=== PATIENT | male | born 1965 | race Caucasian/White ===

== ENCOUNTER 2016-09-19 13:28 | Inpatient (IN) | payer MEDICARE, MEDICAID ==
[~2016-09-19] VITALS: Ht 182.9 cm; Wt 123.4 kg
[2016-09-19 13:28] VITALS: BP_SYST 147
[~2016-09-19 13:28] MED LIST: AMI200 PO; RIVA20TA PO
[2016-09-19] MEDS ORDERED: NACL 0.9% 1,000 ML IV ONE (14:00)
[2016-09-19] MEDS ORDERED: HYDROmorphone 2 MG/ML VIAL IVP ONE ×2 (14:00→16:00)
[2016-09-19 14:50] LABS: BASOPHILS % (AUTO) 0.4 % (0.0-2.0); EOSINOPHILS # (AUTO) 0.2 K/uL (0.0-0.4); HEMATOCRIT 39.8 % (36-54); HEMOGLOBIN 12.5 g/dL (14.0-18.0); LYMPHOCYTES # (AUTO) 1.8 K/uL (1.0-5.5); LYMPHOCYTES % (AUTO) 19.2 % (20.5-51.5); MEAN CORPUSCULAR HEMOGLOBIN 22 pg (27-31); MEAN CORPUSCULAR HGB CONC 32 % (32-36); MEAN CORPUSCULAR VOLUME 71 fL (79.0-98.0); MONOCYTES # (AUTO) 0.6 K/uL (0.0-1.0); NEUTROPHILS # (AUTO) 6.6 K/uL (1.8-7.7); NEUTROPHILS % (AUTO) 71.4 % (40.0-70.0); PLATELET COUNT (AUTO) 306 K/uL (130-430); RED BLOOD CELL COUNT(AUTO) 5.58 MIL/uL (4.2-6.2); RED CELL DISTRIBUTION WIDTH 17.2 % (9.0-15.0); WHITE BLOOD COUNT (AUTO) 9.2 K/uL (4.8-10.8)
[2016-09-19 14:56] LABS: PROTHROMBIN TIME 10.7 SECS (9.5-12.5)
[2016-09-19 14:58] LABS: ANION GAP 7 (5-15); CALCIUM 8.4 mg/dL (8.4-11.0); CHLORIDE 104 mmol/L (98-107); CREATININE 0.99 mg/dL (0.55-1.30); GLUCOSE 103 mg/dL (70-99); POTASSIUM 3.9 mmol/L (3.5-5.1); SODIUM SERUM 141 mmol/L (136-145); UREA NITROGEN, BLOOD 19 mg/dL (8-21)
[2016-09-19 15:01] LABS: GFR AFRICAN AMERICAN 102 mL/min (>90)
[2016-09-19 15:07] LABS: ALANINE AMINOTRANSFERASE 25 U/L (12-78); ALBUMIN 3.2 g/dL (3.4-4.8); ASPARTATE AMINOTRANSFERASE 14 U/L (10-37); CREATINE KINASE, TOTAL 69 U/L (39-308); TOTAL BILIRUBIN 0.2 mg/dL (0.0-1.0)
[2016-09-19 15:32] LABS: BILIRUBIN,URINE NEGATIVE (NEGATIVE); BLOOD, URINE NEGATIVE (NEGATIVE); CLARITY/URINE CLEAR (CLEAR); COLOR,URINE YELLOW (YELLOW); GLUCOSE,URINE NEGATIVE (NEGATIVE); KETONES,URINE NEGATIVE (NEGATIVE); LEUKOCYTE ESTERASE ,URINE NEGATIVE (NEGATIVE); NITRITE, URINE NEGATIVE (NEGATIVE); PROTEIN URINE TRACE (NEGATIVE); UROBILINOGEN,URINE 0.2 (0.2-1.0)
[2016-09-19 15:54] LABS: BACTERIA,URINE FEW /HPF (None Seen); MUCUS,URINE 3+ /LPF (None Seen); RBC,URINE NONE SEEN /HPF (0-3); WBC,URINE 0-3 /HPF (0-3)
[2016-09-19] MEDS ORDERED: HYDR-1189 PO (16:32)
[2016-09-19] MEDS ORDERED: [UNRECOGNIZED DRUG - CODE] PO (16:32)
[2016-09-19] MEDS ORDERED: GABAPENTIN (16:32)
[2016-09-19] MEDS ORDERED: TAMS-11 PO (16:32)
[2016-09-19 17:22] LABS: BARBITURATE, URINE NEGATIVE (NEG <=200); BENZODIAZEPINE, URINE NEGATIVE (NEG <=150); CANNABINOID, URINE NEGATIVE (NEG <=50); COCAINE, URINE NEGATIVE (NEG <=150); METHAMPHETAMINES SCREEN,URINE POSITIVE (NEG <=500); PHENCYCLIDINE SCREEN,URINE NEGATIVE (NEG <=25); URINE AMPHETAMINE POSITIVE (NEG <=500); URINE METHADONE NEGATIVE (NEG <=200)
[2016-09-19 17:23] LABS: OPIATE, URINE POSITIVE (NEG <=100); UR TRICYCLIC ANTIDEPRESSANTS NEGATIVE (NEG <=300); URINE OXYCODONE SCREEN NEGATIVE (NEG <=100); URINE PROPOXYPHENE SCREEN NEGATIVE (NEG <=300)
[2016-09-19 19:09] VITALS: BP_SYST 141
[2016-09-19 19:34] VITALS: BP_SYST 141
[2016-09-19 20:00] VITALS: BP_SYST 142
[2016-09-19] MEDS ORDERED: HYDROcodone/ACETAMIN 5-325 MG TAB (NORCO/ VICODIN) PO SCH (20:00)
[2016-09-19] MEDS ORDERED: HYDROmorphone 1 MG INJ. 1 MG/ML AMPUL IM PRN (20:00)
[2016-09-19] MEDS ORDERED: CARISOPRODOL 350 MG TABLET PO PRN (20:15)
[2016-09-19] MEDS ORDERED: TEMAZEPAM 15 MG CAPSULE PO PRN (20:15)
[2016-09-19] MEDS ORDERED: ACETAMINOPHEN 325 MG TABLET PO PRN (20:15)
[2016-09-19] MEDS: DOCUSATE SODIUM 250 MG CAPSULE PO SCH (20:25)
[2016-09-19] MEDS ORDERED: AMIODARONE HCL 200 MG TABLET PO SCH (21:00)
[2016-09-19] MEDS: DIPHENHYDRAMINE INJ 50 MG/ML VIAL IVP PRN (23:09)
[2016-09-19] MEDS: HYDROmorphone 1 MG INJ. 1 MG/ML AMPUL IVP PRN (23:09)
[2016-09-20 00:02] VITALS: BP_SYST 143
[2016-09-20 04:00] VITALS: BP_SYST 143
[2016-09-20] MEDS: HYDROmorphone 1 MG INJ. 1 MG/ML AMPUL IVP PRN ×3 (04:32→20:06)
[2016-09-20 06:43] LABS: BASOPHILS % (AUTO) 0.4 % (0.0-2.0); EOSINOPHILS # (AUTO) 0.2 K/uL (0.0-0.4); EOSINOPHILS % (AUTO) 2.3 % (0.0-4.0); HEMATOCRIT 38.9 % (36-54); LYMPHOCYTES # (AUTO) 1.9 K/uL (1.0-5.5); LYMPHOCYTES % (AUTO) 21.5 % (20.5-51.5); MEAN CORPUSCULAR HEMOGLOBIN 22 pg (27-31); MEAN CORPUSCULAR HGB CONC 31 % (32-36); MEAN CORPUSCULAR VOLUME 72 fL (79.0-98.0); MONOCYTES # (AUTO) 0.5 K/uL (0.0-1.0); MONOCYTES % (AUTO) 6.1 % (1.7-9.3); NEUTROPHILS # (AUTO) 6.3 K/uL (1.8-7.7); NEUTROPHILS % (AUTO) 69.7 % (40.0-70.0); PLATELET COUNT (AUTO) 284 K/uL (130-430); RED BLOOD CELL COUNT(AUTO) 5.41 MIL/uL (4.2-6.2); WHITE BLOOD COUNT (AUTO) 8.9 K/uL (4.8-10.8)
[2016-09-20 07:39] LABS: ALBUMIN 2.9 g/dL (3.4-4.8); CALCIUM 8.1 mg/dL (8.4-11.0); CREATININE 0.71 mg/dL (0.55-1.30); POTASSIUM 3.7 mmol/L (3.5-5.1); THYROID STIMULATING HORMONE 4.69 uIu/mL (0.34-4.82); TOTAL BILIRUBIN 0.1 mg/dL (0.0-1.0); TOTAL PROTEIN, SERUM 6.4 g/dL (6.4-8.3)
[2016-09-20] MEDS: DOCUSATE SODIUM 250 MG CAPSULE PO SCH ×2 (08:58→20:06)
[2016-09-20] MEDS: TAMSULOSIN HCL 0.4 MG CAP PO SCH (08:58)
[2016-09-20] MEDS: HYDROcodone/ACETAMIN 5-325 MG TAB (NORCO/ VICODIN) PO PRN (08:59)
[2016-09-20] MEDS: KETOROLAC TROMETHAMINE 15 MG VIAL IVP PRN (09:00)
[2016-09-20 12:09] VITALS: BP_SYST 147
[2016-09-20 16:04] VITALS: BP_SYST 144
[2016-09-20 20:00] VITALS: BP_SYST 148
[2016-09-21] MEDS: HYDROmorphone 1 MG INJ. 1 MG/ML AMPUL IVP PRN ×5 (00:47→20:42)
[2016-09-21 00:50] VITALS: BP_SYST 146
[2016-09-21 05:54] VITALS: BP_SYST 150
[2016-09-21 08:05] VITALS: BP_SYST 100
[2016-09-21] MEDS: TAMSULOSIN HCL 0.4 MG CAP PO SCH (08:25)
[2016-09-21] MEDS: DOCUSATE SODIUM 250 MG CAPSULE PO SCH ×2 (08:25→20:40)
[2016-09-21] MEDS: HYDROcodone/ACETAMIN 5-325 MG TAB (NORCO/ VICODIN) PO PRN ×3 (08:26→16:43)
[2016-09-21 12:00] VITALS: BP_SYST 135
[2016-09-21] MEDS: ONDANSETRON HCL 4 MG/2 ML VIAL IVP PRN ×2 (13:41→16:43)
[2016-09-21 14:02] LABS: BASOPHILS % (AUTO) 0.3 % (0.0-2.0); EOSINOPHILS # (AUTO) 0.1 K/uL (0.0-0.4); EOSINOPHILS % (AUTO) 1.6 % (0.0-4.0); HEMOGLOBIN 12.1 g/dL (14.0-18.0); LYMPHOCYTES # (AUTO) 1.6 K/uL (1.0-5.5); LYMPHOCYTES % (AUTO) 21.3 % (20.5-51.5); MEAN CORPUSCULAR HEMOGLOBIN 23 pg (27-31); MEAN CORPUSCULAR HGB CONC 32 % (32-36); MEAN CORPUSCULAR VOLUME 71 fL (79.0-98.0); MONOCYTES # (AUTO) 0.5 K/uL (0.0-1.0); MONOCYTES % (AUTO) 6.1 % (1.7-9.3); NEUTROPHILS # (AUTO) 5.2 K/uL (1.8-7.7); NEUTROPHILS % (AUTO) 70.7 % (40.0-70.0); PLATELET COUNT (AUTO) 269 K/uL (130-430); RED BLOOD CELL COUNT(AUTO) 5.33 MIL/uL (4.2-6.2); RED CELL DISTRIBUTION WIDTH 16.5 % (9.0-15.0); WHITE BLOOD COUNT (AUTO) 7.4 K/uL (4.8-10.8)
[2016-09-21 16:20] VITALS: BP_SYST 137
[2016-09-21] MEDS: DIPHENHYDRAMINE INJ 50 MG/ML VIAL IVP PRN (19:05)
[2016-09-21 20:00] VITALS: BP_SYST 130
[2016-09-21] MEDS: ANUSOL 1 EA SUPP.RECT (PREPARATION H) RC SCH (20:41)
[2016-09-22] MEDS ORDERED: MAG-AL HYDROX/SIMETH 30 ML UDC PO PRN (00:15)
[2016-09-22 00:16] VITALS: BP_SYST 123
[2016-09-22] MEDS: HYDROmorphone 1 MG INJ. 1 MG/ML AMPUL IVP PRN ×6 (00:39→21:52)
[2016-09-22 04:38] VITALS: BP_SYST 119
[2016-09-22 06:33] LABS: BASOPHILS % (AUTO) 0.3 % (0.0-2.0); EOSINOPHILS # (AUTO) 0.1 K/uL (0.0-0.4); EOSINOPHILS % (AUTO) 1.7 % (0.0-4.0); HEMATOCRIT 38.8 % (36-54); HEMOGLOBIN 12.1 g/dL (14.0-18.0); LYMPHOCYTES # (AUTO) 1.7 K/uL (1.0-5.5); LYMPHOCYTES % (AUTO) 22.1 % (20.5-51.5); MEAN CORPUSCULAR HEMOGLOBIN 23 pg (27-31); MEAN CORPUSCULAR HGB CONC 31 % (32-36); MEAN CORPUSCULAR VOLUME 72 fL (79.0-98.0); MONOCYTES # (AUTO) 0.5 K/uL (0.0-1.0); MONOCYTES % (AUTO) 6.7 % (1.7-9.3); NEUTROPHILS # (AUTO) 5.5 K/uL (1.8-7.7); NEUTROPHILS % (AUTO) 69.2 % (40.0-70.0); PLATELET COUNT (AUTO) 294 K/uL (130-430); RED BLOOD CELL COUNT(AUTO) 5.39 MIL/uL (4.2-6.2); RED CELL DISTRIBUTION WIDTH 16.5 % (9.0-15.0); WHITE BLOOD COUNT (AUTO) 7.8 K/uL (4.8-10.8)
[2016-09-22 07:52] VITALS: BP_SYST 140
[2016-09-22] MEDS: DOCUSATE SODIUM 250 MG CAPSULE PO SCH ×2 (09:00→21:00)
[2016-09-22] MEDS: ANUSOL 1 EA SUPP.RECT (PREPARATION H) RC SCH ×2 (09:00→21:00)
[2016-09-22] MEDS: TAMSULOSIN HCL 0.4 MG CAP PO SCH (09:00)
[2016-09-22] MEDS ORDERED: MAGNESIUM CITRATE 300 ML ORAL SOLUTION PO ONE (09:45)
[2016-09-22 12:39] VITALS: BP_SYST 139
[2016-09-22 16:29] VITALS: BP_SYST 143
[2016-09-22] MEDS ORDERED: BISACODYL 5 MG TABLET.DR (DULCOLAX) PO ONE (17:00)
[2016-09-22] MEDS ORDERED: GOLYTELY / COLYTE SOLUTION 4 LITERS PO ONE (18:00)
[2016-09-22 20:00] VITALS: BP_SYST 135
[2016-09-23 00:11] VITALS: BP_SYST 139
[2016-09-23] MEDS: HYDROmorphone 1 MG INJ. 1 MG/ML AMPUL IVP PRN ×4 (01:51→19:18)
[2016-09-23] MEDS: DIPHENHYDRAMINE INJ 50 MG/ML VIAL IVP PRN ×2 (03:35→14:10)
[2016-09-23 03:58] VITALS: BP_SYST 125
[2016-09-23 06:40] LABS: BASOPHILS % (AUTO) 0.4 % (0.0-2.0); EOSINOPHILS # (AUTO) 0.2 K/uL (0.0-0.4); EOSINOPHILS % (AUTO) 2.3 % (0.0-4.0); HEMATOCRIT 37.5 % (36-54); HEMOGLOBIN 11.6 g/dL (14.0-18.0); LYMPHOCYTES # (AUTO) 1.9 K/uL (1.0-5.5); MEAN CORPUSCULAR HEMOGLOBIN 22 pg (27-31); MEAN CORPUSCULAR HGB CONC 31 % (32-36); MEAN CORPUSCULAR VOLUME 72 fL (79.0-98.0); MONOCYTES # (AUTO) 0.5 K/uL (0.0-1.0); MONOCYTES % (AUTO) 5.3 % (1.7-9.3); PLATELET COUNT (AUTO) 292 K/uL (130-430); RED BLOOD CELL COUNT(AUTO) 5.22 MIL/uL (4.2-6.2); RED CELL DISTRIBUTION WIDTH 16.5 % (9.0-15.0); WHITE BLOOD COUNT (AUTO) 8.6 K/uL (4.8-10.8)
[2016-09-23 06:52] LABS: ALBUMIN 2.9 g/dL (3.4-4.8); CALCIUM 8.3 mg/dL (8.4-11.0); CREATININE 0.79 mg/dL (0.55-1.30); POTASSIUM 4.8 mmol/L (3.5-5.1); TOTAL BILIRUBIN 0.2 mg/dL (0.0-1.0); TOTAL PROTEIN, SERUM 6.6 g/dL (6.4-8.3)
[2016-09-23 08:30] VITALS: BP_SYST 130
[2016-09-23] MEDS: DOCUSATE SODIUM 250 MG CAPSULE PO SCH ×2 (09:00→20:36)
[2016-09-23] MEDS: TAMSULOSIN HCL 0.4 MG CAP PO SCH (09:00)
[2016-09-23 12:27] VITALS: BP_SYST 123
[2016-09-23] MEDS ORDERED: SIMETHICONE 40 MG/0.6 ML ML ONE (13:50)
[2016-09-23] MEDS: fentaNYL CITRATE/PF 100 MCG/2 ML AMP ONE ×3 (16:15→16:20)
[2016-09-23] MEDS: MIDAZOLAM HCL 5 MG/5 ML VIAL ONE ×3 (16:15→16:20)
[2016-09-23 16:40] VITALS: BP_SYST 128
[2016-09-23] MEDS: KETOROLAC TROMETHAMINE 15 MG VIAL IVP PRN (20:40)
[2016-09-23] MEDS: ANUSOL 1 EA SUPP.RECT (PREPARATION H) RC SCH (21:00)
[2016-09-23 22:31] VITALS: BP_SYST 135
[2016-09-24 00:19] VITALS: BP_SYST 135
[2016-09-24] MEDS: KETOROLAC TROMETHAMINE 15 MG VIAL IVP PRN ×3 (01:19→14:15)
[2016-09-24 04:04] VITALS: BP_SYST 136
[2016-09-24 06:59] LABS: BASOPHILS % (AUTO) 0.2 % (0.0-2.0); EOSINOPHILS # (AUTO) 0.2 K/uL (0.0-0.4); EOSINOPHILS % (AUTO) 1.8 % (0.0-4.0); HEMATOCRIT 39.3 % (36-54); HEMOGLOBIN 12.3 g/dL (14.0-18.0); LYMPHOCYTES # (AUTO) 1.4 K/uL (1.0-5.5); LYMPHOCYTES % (AUTO) 15.7 % (20.5-51.5); MEAN CORPUSCULAR HEMOGLOBIN 23 pg (27-31); MEAN CORPUSCULAR HGB CONC 31 % (32-36); MEAN CORPUSCULAR VOLUME 72 fL (79.0-98.0); MONOCYTES # (AUTO) 0.5 K/uL (0.0-1.0); MONOCYTES % (AUTO) 5.6 % (1.7-9.3); NEUTROPHILS % (AUTO) 76.7 % (40.0-70.0); PLATELET COUNT (AUTO) 302 K/uL (130-430); RED BLOOD CELL COUNT(AUTO) 5.42 MIL/uL (4.2-6.2); RED CELL DISTRIBUTION WIDTH 16.9 % (9.0-15.0); WHITE BLOOD COUNT (AUTO) 9.1 K/uL (4.8-10.8)
[2016-09-24 07:08] LABS: CALCIUM 8.5 mg/dL (8.4-11.0); CREATININE 0.78 mg/dL (0.55-1.30); POTASSIUM 4.5 mmol/L (3.5-5.1)
[2016-09-24 08:00] VITALS: BP_SYST 126
[2016-09-24] MEDS: HYDROmorphone 1 MG INJ. 1 MG/ML AMPUL IVP PRN ×2 (09:37→16:01)
[2016-09-24] MEDS: TAMSULOSIN HCL 0.4 MG CAP PO SCH (09:37)
[2016-09-24] MEDS: DOCUSATE SODIUM 250 MG CAPSULE PO SCH (09:37)
[2016-09-24] MEDS: ANUSOL 1 EA SUPP.RECT (PREPARATION H) RC SCH (09:37)
[2016-09-24 11:38] VITALS: BP_SYST 147
[2016-09-24 14:50] VITALS: BP_SYST 147
[2016-09-24 16:11] VITALS: BP_SYST 144
[2016-09-24] MEDS: HYDROcodone/ACETAMIN 5-325 MG TAB (NORCO/ VICODIN) PO PRN (17:47)
== END 2016-09-24 18:45 | disposition home or self-care (01) | DRG 917 ==
LOC: SED 13:28 → STU 17:34 → SMU 09-21 09:07
PROVIDERS: ADMIT Internal Medicine; ATTEND Internal Medicine
PROC: 0DB88ZX Excision of Small Intestine, Via Natural or Artificial Opening Endoscopic, Diagnostic (ICD-10-PCS; 2016-09-23)
PROC: 0DBE8ZX Excision of Large Intestine, Via Natural or Artificial Opening Endoscopic, Diagnostic (ICD-10-PCS; principal; 2016-09-23 14:00)
DX: T43.621A Poisoning by amphetamines, accidental (unintentional), initial encounter (principal); K57.31 Diverticulosis of large intestine without perforation or abscess with bleeding; G92 Toxic encephalopathy; D68.59 Other primary thrombophilia; I48.0 Paroxysmal atrial fibrillation; R55 Syncope and collapse; I10 Essential (primary) hypertension; E66.9 Obesity, unspecified; D64.9 Anemia, unspecified; G89.4 Chronic pain syndrome; K21.9 Gastro-esophageal reflux disease without esophagitis; K59.00 Constipation, unspecified; K64.9 Unspecified hemorrhoids; M19.90 Unspecified osteoarthritis, unspecified site; M48.06 Spinal stenosis, lumbar region; M54.9 Dorsalgia, unspecified; N40.0 Benign prostatic hyperplasia without lower urinary tract symptoms; W13.2XXA Fall from, out of or through roof, initial encounter; Y93.89 Activity, other specified; Y92.89 Other specified places as the place of occurrence of the external cause; Y99.8 Other external cause status; Z79.82 Long term (current) use of aspirin; Z85.038 Personal history of other malignant neoplasm of large intestine; Z90.49 Acquired absence of other specified parts of digestive tract; Z79.899 Other long term (current) drug therapy; Z88.8 Allergy status to other drugs, medicaments and biological substances; Z68.36 Body mass index [BMI] 36.0-36.9, adult
CPT/HCPCS: 36415; 45380; 70450-TC; 71010; 72125-TC; 73030; 73200-TC; 80048; 80053; 80061; 80307; 81000-TC; 82550-TC; 83605; 83690-TC; 84443-TC; 84484; 85025; 85610-TC; 87040-TC; 88305; 93005; 93306; 96374; 96375; 97116-GP; 97530-GP; 99285; J1170; J1200; J1885; J2250; J2405; J3010; J7030

== ENCOUNTER 2017-09-07 18:25 | Emergency (ER) | payer MEDICARE, MEDICAID ==
[~2017-09-07] VITALS: Ht 185.4 cm; Wt 124.7 kg
[~2017-09-07 18:25] MED LIST changes: +GABAPENTIN; +HYDR-1189 PO; +TAMS-11 PO; +[UNRECOGNIZED DRUG - CODE] PO
[2017-09-07 19:20] VITALS: BP_SYST 166
[2017-09-07] MEDS ORDERED: fentaNYL CITRATE/PF 100 MCG/2 ML AMP IVP ONE (20:00)
[2017-09-07] MEDS ORDERED: ONDANSETRON 4 MG ODT TAB PO ONE (20:00)
[2017-09-07 20:27] LABS: BILIRUBIN,URINE NEGATIVE (NEGATIVE); BLOOD, URINE TRACE (NEGATIVE); CLARITY/URINE CLOUDY (CLEAR); COLOR,URINE YELLOW (YELLOW); GLUCOSE,URINE NEGATIVE (NEGATIVE); KETONES,URINE NEGATIVE (NEGATIVE); LEUKOCYTE ESTERASE ,URINE NEGATIVE (NEGATIVE); NITRITE, URINE NEGATIVE (NEGATIVE); PH,URINE 5.5 (5.0-8.0); PROTEIN URINE 2+ (NEGATIVE); UROBILINOGEN,URINE 0.2 (0.2-1.0)
[2017-09-07 20:39] LABS: BACTERIA,URINE MODERATE /HPF (None Seen); MUCUS,URINE None Seen /LPF (None Seen); RBC,URINE NONE SEEN /HPF (0-3); URINE AMORPHOUS URATE 3+ /HPF (None Seen); WBC,URINE 0-3 /HPF (0-3)
[2017-09-07 21:41] VITALS: BP_SYST 142
== END 2017-09-07 21:41 | disposition home or self-care (01) ==
LOC: SED 18:25
DX: M25.512 Pain in left shoulder (principal); M25.562 Pain in left knee; I48.91 Unspecified atrial fibrillation; I10 Essential (primary) hypertension; Z85.46 Personal history of malignant neoplasm of prostate; Z85.038 Personal history of other malignant neoplasm of large intestine; Z88.6 Allergy status to analgesic agent; Z79.899 Other long term (current) drug therapy; W11.XXXA Fall on and from ladder, initial encounter; Y93.89 Activity, other specified; Y92.89 Other specified places as the place of occurrence of the external cause; Y99.8 Other external cause status
CPT/HCPCS: 72125; 72128; 72131; 73030; 73564; 81000; 96374; 99285; J3010; Q0162